=== PATIENT | female | born 1990 | race Caucasian/White ===

== ENCOUNTER → 2021-05-19 | Outpatient (CLI) | payer OTHER ==
[~2021-05-19] MED LIST: ANTIVERT 25MG25 MG PO; NORCO 325 MG-7.1 TAB PO; PEN-VEE K500 MG PO; PHENERGAN 25 TA25 MG PO; PRENATAL1 TA1 PO; ZANTAC 150MG T150 MG PO; ZOFRAN ODT4 MG PO
== END ==
LOC: MC.RAD 11:00
DX: N63.10 Unspecified lump in the right breast, unspecified quadrant (principal); G35 Multiple sclerosis

== ENCOUNTER 2021-06-14 11:07 | Outpatient (CLI) | payer OTHER ==
[~2021-06-14] VITALS: Ht 165.1 cm; Wt 89.6 kg
[2021-06-14] VITALS (11 sets, daily range): BP systolic 11–122; BP diastolic 68–83; PULSE 78–107; TEMP 98.1
[2021-06-14] MEDS ORDERED: CYMBALTA 60MG60 MG PO (15:50)
[2021-06-14] MEDS ORDERED: ADDERALL20 MG PO (15:50)
[2021-06-14] MEDS ORDERED: WELLBUTRIN XL300 M1 PO (15:51)
[2021-06-14] MEDS ORDERED: INDERAL 10MG10 MG PO (15:52)
== END 2021-06-14 15:52 ==
LOC: EUO 11:07
DX: G35 Multiple sclerosis (principal)
CPT/HCPCS: J1644; J2350; J2930; J7040

== ENCOUNTER 2022-06-21 09:41 | Outpatient (CLI) | payer OTHER ==
[2022-06-21] VITALS (7 sets, daily range): BP systolic 103–117; BP diastolic 68–80; PULSE 80–104; TEMP 98.3
[~2022-06-21] VITALS: Ht 165.1 cm; Wt 85.8 kg
[~2022-06-21 09:41] MED LIST changes: +ADDERALL20 MG PO; +CYMBALTA 60MG60 MG PO; +INDERAL 10MG10 MG PO; +PREDNISONE50 MG PO; +WELLBUTRIN XL300 M1 PO
[2022-06-21] MEDS ORDERED: BRINTELLIX10 PO (10:01)
[2022-06-21] MEDS ORDERED: XARELTO20 MG PO (10:03)
--- NOTE | 2022-06-21 11:43 | NUR ---
Pt c/o itching and scratching sensation to throat. Ocrevus infusion stopped at initial pt report. VS obtained and remain stable. Rate decreased from 250ml/hr to 125ml/hr per order set. Pt speaking in full sentences. Denies trouble swallowing. No other complaints. States she's had similar reaction to previous ocrevus infusion which improved with decreased rate. Call light in reach. Pt will call with any further concerns or worsening of symptoms.
--- NOTE | 2022-06-21 12:16 | NUR ---
Pt ambulates to restroom. She reports itching in throat is nearly resolved after rate of infusion was slowed. She is eating meal tray without issue.
--- NOTE | 2022-06-21 13:05 | NUR ---
Pt continues to tolerate infusion well since rate was decreased. Now infusing at 200ml/hr for remainder of infusion. She states she has no further itching in throat or other complaints.
--- NOTE | 2022-06-21 13:45 | NUR ---
pt admitted to having suicidal ideations and wishing to fall asleep and not wake up within the last six months. she stated that this is directly caused by her depression, anxiety, and chronic illnesses. she also stated that she is seeking treatment with her therapist and that the current medications that she is taking greatly reduce these thoughts and wishes. she states that she wishes to stay alive for her children. no interventions implemented at this time.
== END 2022-06-21 15:25 | disposition home or self-care (01) ==
LOC: EUO 09:41
DX: G35 Multiple sclerosis (principal)
CPT/HCPCS: J1644; J2350; J2930; J7040